=== PATIENT | female | born 1960 | race Caucasian/White ===

== ENCOUNTER → 2017-11-19 | Outpatient (CLI) | payer OTHER ==
[~2017-11-19] MED LIST: Adult Low Dose81 MG PO; Armour Thyroid90 MG PO; CHLO25B PO; CHOL10002; IBUP600 PO; INSULANPEN SC; LOSA50 PO; MECL12.5 PO; Metformin HCl500 MG PO; OMEP40CA12 PO; PIOG45 PO; Percocet 5-3251 EACH PO; SIMV40 PO; Synthroid112 MCG PO
== END | disposition home or self-care (01) ==
LOC: LAB SHORT 10:01 → LAB 10:01
PROVIDERS: Nurse Practitioner Women's Health
DX: Z12.4 Encounter for screening for malignant neoplasm of cervix (principal); Z91.89 Other specified personal risk factors, not elsewhere classified
CPT/HCPCS: 87624; G0123